=== PATIENT | female | born 1950 | race Caucasian/White ===

== ENCOUNTER 2016-07-25 12:15 | Emergency (ER) | payer MEDICAID, OTHER ==
[~2016-07-25] VITALS: Ht 157.5 cm; Wt 78.1 kg
[~2016-07-25 12:15] MED LIST: AUG875 PO; FLUT9.9S NASAL; PSEU30TA38 PO
[2016-07-25 12:20] VITALS: Ht 157.5 cm; Wt 78.1 kg
[2016-07-25] MEDS ORDERED: ASPIRIN 81 MG TAB PO STA (15:36)
[2016-07-25] MEDS ORDERED: NITROGLYCERIN 2% 1 GM OINT PKT TD STA (15:36)
[2016-07-25 15:58] LABS: ADD SCAN DIFF NO
[2016-07-25] MEDS ORDERED: NITROGLYCERIN (SL) 0.4 MG TAB SL PRN (16:00)
[2016-07-25 16:01] LABS: BASOPHILS % 0.7 % (0.0-2.0); EOSINOPHILS # 0.1 10^3/ul (0.0-0.5); EOSINOPHILS % 0.8 % (0.0-7.0); HEMOGLOBIN 14.8 g/dl (12.0-16.0); LYMPHOCYTES % 33.9 % (15.0-51.0); MEAN CORPUSCULAR HGB CONC 31.5 g/dl (32.0-37.0); MEAN CORPUSCULAR VOLUME 92.2 fl (82.0-101.0); MEAN PLATELET VOLUME 9.9 fl (7.4-10.4); MONOCYTE # 0.5 10^3/ul (0.3-0.9); NEUTROPHIL # 3.4 10^3/ul (1.6-7.5); NEUTROPHILS % 55.6 % (39.0-77.0); PLATELET COUNT 277 10^3/UL (140-415); RED CELL DISTRIBUTION WIDTH 13.8 % (11.5-14.5)
--- NOTE | 2016-07-25 16:14 | RADRPT ---
PROCEDURE: XR Chest. CLINICAL INDICATION: Chest pain. TECHNIQUE: Single frontal chest x-ray. COMPARISON: 04/22/2014 FINDINGS: The lungs are clear. No focal opacification is seen. No pneumothorax or pleural effusion is seen. The cardiomediastinal silhouette is unremarkable. The osseous structures are grossly unremarkable. IMPRESSION: No evidence of acute cardiopulmonary disease. RPTAT: EE .Ryne Salomon MD, MD Date Time Electronically viewed and signed by .Ryne Salomon MD, on 07/25/2016 16:13 .A/
[2016-07-25 16:22] LABS: INR 0.95; PROTIME 12.7 Sec (12.2-14.2)
[2016-07-25 16:23] LABS: PARTIAL THROMBOPLASTIN TIME 28.4 Sec (25.0-35.0)
[2016-07-25 16:24] LABS: CHLORIDE 101 mmol/L (97-110); POTASSIUM 4.2 mmol/L (3.5-5.1); SODIUM 141 mmol/L (135-144)
[2016-07-25 16:27] LABS: ANION GAP 16 (8-16); BLOOD UREA NITROGEN 16 mg/dl (7-20); CALCIUM 9.7 mg/dl (8.4-10.2); CARBON DIOXIDE 28 mmol/L (21-31); CREATININE 0.65 mg/dl (0.44-1.00); GLUCOSE 96 mg/dl (70-220)
[2016-07-25 16:54] LABS: TROPONIN-I < 0.012 ng/ml (0.00-0.12)
[2016-07-25] MEDS ORDERED: IBUP-1542 PO (17:01)
[2016-07-25 17:06] VITALS: BP 116/66; PULSE 62; RESP 18
--- NOTE | 2016-07-25 18:59 | ERD ---
ER Documentation Chief Complaint Date/Time DATE: 07/25/16 TIME: 18:57 Chief Complaint sinusitis and chest pains , jiménez,x 3 weeks HPI Patient is a 66-year-old female with no medical problems who presents with chest pain and headache. She says that for the past 2-3 weeks she has had pressure on her chest and felt anxious. She has headache which was gradual in onset. She says that she has pain in her sinuses. She feels like the chest pain was sharp as well. She was concerned so she wanted to get checked out. The pain comes and goes. She has had no treatment as of yet. She has not called her primary doctor as of yet does not know the name of her primary doctor. Upon review of old medical records this is the patient's sixth visit to the ER since 2013. ROS All systems reviewed and are negative except as per history of present illness. Medications Home Meds Active Scripts Ibuprofen* (Motrin*) 600 Mg Tab, 600 MG PO Q8, #30 TAB Prov:SERAFIN PENA MD 07/25/16 Discontinued Scripts Fluticasone Propionate (Flonase Allergy Relief) 9.9 Ml [place].susp, 2 SPRAY NASAL DAILY, #1 BOTTLE TO EACH NOSTRIL Prov:DAGMAR DALLAS PA-C 03/16/15 Pseudoephedrine Hcl* (Pseudoephedrine Hcl*) 30 Mg Tablet, 30 MG PO Q6 Y for CONGESTION, #30 TAB Prov:DAGMAR DALLAS PA-C 03/16/15 Amoxicillin-Clavulanate K* (Augmentin*) 875 Mg Tab, 875 MG PO BID for 10 Days, TAB Prov:DAGMAR DALLAS PA-C 03/16/15 Allergies Allergies: Coded Allergies: No Known Allergy (Unverified , 07/25/16) PMhx/Soc Medical and Surgical Hx: pt denies Medical Hx, pt denies Surgical Hx Hx Alcohol Use: No Hx Substance Use: No Hx Tobacco Use: No Smoking Status: Never smoker FmHx Family History: coronary disease Physical Exam Vitals Vital Signs Date Time Temp Pulse Resp B/P Pulse Ox O2 Delivery O2 Flow Rate FiO2 07/25/16 17:06 62 18 116/66 98 Room Air 07/25/16 12:20 98.1 80 18 118/57 99 Physical Exam Const: No acute distress Head: Atraumatic Eyes: Normal Conjunctiva ENT: Normal External Ears, Nose and Mouth. Neck: Full range of motion..~ No meningismus. Resp: Clear to auscultation bilaterally Cardio: Regular rate and rhythm, no murmurs Abd: Soft, non tender, non distended. Normal bowel sounds Skin: No petechiae or rashes Back: No midline or flank tenderness Ext: No cyanosis, or edema Neur: Awake and alert Psych: Normal Mood and Affect Result Diagram: 07/25/16 1548 07/25/16 1536 Results 24 hrs Laboratory Tests Test 07/25/16 15:36 07/25/16 15:48 Sodium Level 141mmol/L Potassium Level 4.2mmol/L Chloride Level 101mmol/L Carbon Dioxide Level 28mmol/L Anion Gap 16 Blood Urea Nitrogen 16mg/dl Creatinine 0.65mg/dl Glucose Level 96mg/dl Calcium Level 9.7mg/dl Troponin I < 0.012ng/ml White Blood Count 6.010^3/ul Red Blood Count 5.1010^6/ul Hemoglobin 14.8g/dl Hematocrit 47.0% Mean Corpuscular Volume 92.2fl Mean Corpuscular Hemoglobin 29.0pg Mean Corpuscular Hemoglobin Concent 31.5g/dl Red Cell Distribution Width 13.8% Platelet Count 89739^3/UL Mean Platelet Volume 9.9fl Neutrophils % 55.6% Lymphocytes % 33.9% Monocytes % 9.0% Eosinophils % 0.8% Basophils % 0.7% Nucleated Red Blood Cells % 0.0/100WBC Neutrophils # 3.410^3/ul Lymphocytes # 2.010^3/ul Monocytes # 0.510^3/ul Eosinophils # 0.110^3/ul Basophils # 0.010^3/ul Nucleated Red Blood Cells # 0.010^3/ul Prothrombin Time 12.7Sec Prothrombin Time Ratio 1.0 INR International Normalized Ratio 0.95 Activated Partial Thromboplast Time 28.4Sec Current Medications Medications (Trade) Dose Ordered Sig/Charly Route PRN Reason Start Time Stop Time Status Last Admin Dose Admin Aspirin (Aspirin) 162 mg ONCE STAT PO 07/25/16 15:36 07/25/16 15:37 DC 07/25/16 15:57 Nitroglycerin (Nitroglycerin 2% Oint) 1 inch ONCE STAT TD 07/25/16 15:36 07/25/16 15:37 DC 07/25/16 15:59 Nitroglycerin (Nitroglycerin (Sl Tab) 0.4 Mg) 1 tab Q5M UP TO 3 DOSES PRN SL CHEST PAIN 07/25/16 16:00 Procedures/MDM EKG read by me: Rate/Rhythm: Regular rate and rhythm at a normal rate Intervals: Normal Impression: No evidence of ischemia or arrhythmia Chest x-ray negative per radiology. Patient is a 66-year-old female with no medical problems who presents with chest pain and headache. She had a full workup including laboratory studies, EKG, and chest x-ray which were all normal. I spoke with Dr. Domínguez from [facility] for potential admission by , would like to manage this patient as an outpatient. I do believe that this is a reasonable course of action and Dr. Domínguez will set the patient up with cardiology within 24-48 hours. The patient can return for any worsening symptoms. I doubt pneumonia, pneumothorax, pulmonary embolism, or aortic dissection. Departure Diagnosis: Primary Impression: Headache Headache type: unspecified Headache chronicity pattern: acute headache Intractability: not intractable Qualified Code: R51 - Acute nonintractable headache, unspecified headache type Additional Impression: Chest pain Chest pain type: unspecified Qualified Code: R07.9 - Chest pain, unspecified type Condition: Fair Patient Instructions: Self-Care for Headaches, Chest Pain, Uncertain Cause Additional Instructions: Llame al doctor TYE y selvin zaynab JOAN PARA DENTRO DE 1-2 SLAUGHTER.Dgale a la secretaria que nosotros le instruimos hacer esta joan.Avise o llame si cardozo condicin se empeora antes de la joan. Regresa aqui si peor o no mejor. SERAFIN PENA MD July 25, 2016 18:59
== END 2016-07-25 17:10 | disposition home or self-care (01) ==
LOC: E/R 12:15
DX: R51 Headache (principal); R07.9 Chest pain, unspecified
CPT/HCPCS: 36415; 71010; 80048; 84484; 85025; 85610; 85730; 93005; Z7502; Z7610